=== PATIENT | female | born 1965 | race Caucasian/White ===

== ENCOUNTER 2023-12-26 10:55 | Emergency (ER) | payer OTHER, MEDICARE ==
[~2023-12-26] VITALS: Ht 160 cm; Wt 90.5 kg
[2023-12-26 10:58] VITALS: BP 127/62; PULSE 110; RESP 20; TEMP 99.7; O2SAT 95
[2023-12-26 12:05] LABS: BASOPHILS % (AUTO) 0.4 % (0-1); EOSINOPHILS # (AUTO) 0.1 X10'3 (0-0.9); EOSINOPHILS % (AUTO) 3.1 % (0-6); HEMATOCRIT 37.8 % (35.0-45.0); HEMOGLOBIN 12.8 g/dl (12.0-16.0); LYMPHOCYTES # (AUTO) 0.7 X10'3 (1.1-4.8); LYMPHOCYTES % (AUTO) 15.2 % (21-51); MEAN CORPUSCULAR HGB CONC 33.9 g/dL (33.0-36.5); MEAN CORPUSCULAR VOLUME 88.4 FL (78-98); MONOCYTES # (AUTO) 0.3 X10'3 (0-0.9); MONOCYTES % (AUTO) 6.6 % (2-12); NEUTROPHILS # (AUTO) 3.6 X10'3 (1.8-7.7); NEUTROPHILS % (AUTO) 74.7 % (42-75); PLATELET COUNT 250 X10'3 (140-440); RED BLOOD COUNT 4.27 X10'6 (4.20-5.60); RED CELL DISTRIBUTION WIDTH 13.4 % (11.5-14.5); WHITE BLOOD COUNT 4.8 X10'3 (4.5-11.0)
[2023-12-26 12:30] LABS: ALBUMIN 3.9 G/DL (3.4-5.0); ANION GAP 12 (8-16); BLOOD UREA NITROGEN 13 MG/DL (7-18); BUN/CREATININE RATIO 20.6 (10.0-20.0); CALCIUM 9.1 MG/DL (8.5-10.1); CHLORIDE 105 MMOL/L (99-107); CREATININE 0.63 MG/DL (0.40-0.90); GLUCOSE 141 MG/DL (70-104); PRO BRAIN NATRIURETIC PEPTIDE 40 PG/ML (0-125); SODIUM 143 MMOL/L (135-145); TOTAL CARBON DIOXIDE 26.3 MMOL/L (24-32); eCRCL 79 ML/MIN; eGFR > 90 ML/MIN
== END 2023-12-26 12:52 | disposition left against medical advice (07) ==
LOC: ER 10:56
DX: R40.4 Transient alteration of awareness (principal); R07.9 Chest pain, unspecified; I25.2 Old myocardial infarction; Z53.21 Procedure and treatment not carried out due to patient leaving prior to being seen by health care provider
CPT/HCPCS: 36415; 71045; 80048; 83880; 84484; 85025; 93005